=== PATIENT | male | born 1975 | race Hispanic/Latino ===

== ENCOUNTER 2023-10-23 06:15 | Emergency (ER) | payer SELFPAY ==
[2023-10-23] VITALS (25 sets, daily range): BP systolic 136–176; BP diastolic 82–109; PULSE 60–96; RESP 13–25; TEMP 36.4; O2SAT 97–100
--- NOTE | ~2023-10-23 | CT_ITS ---
EXAMINATION: CT abdomen pelvis w con DATE: 10/23/2023 07:47 INDICATION: Bilateral upper quadrant pain, clammy and ill-appearing TECHNIQUE: Computed tomography (CT) of the abdomen and pelvis was performed with 100 mL Omnipaque-350 intravenous contrast. Automated exposure control and iterative reconstruction technique were employe d. The dose-length product was 697.56 mGy-cm. COMPARISON: None FINDINGS: Lung bases are clear. Heart size is normal. No pericardial or pleural effusion. Prominent diffuse hep atic steatosis with mild sparing along the gallbladder fossa. Gallbladder, spleen, pancreas, bilatera l adrenal glands and kidneys are normal. Bladder is normal. Equivocal bowel wall thickening but witho ut significant associated hyperemia to vasa recta and this could be artifact of the largely decompres sed state of the colon. No bowel obstruction. Normal appendix. No free intraperitoneal gas or fluid. No pathologically enlarged abdominal or pelvic lymphadenopathy. Mild thoracic and lumbar spondylosis. IMPRESSION: 1. Equivocal diffuse wall thickening of the colon without surrounding inflammatory changes. Could not exclude a mild colitis however specificity is decreased by the largely decompressed state of the col on with differential also including fatty infiltration related to body habitus. 2. Prominent diffuse and hepatic steatosis. Reviewed, dictated and finalized at location A. IMPRESSION: 1. Equivocal diffuse wall thickening of the colon without surrounding inflammat ory changes. Could not exclude a mild colitis however specificity is decreased by the largely decompressed state of the colon with differential also including fatty infiltration related to body habitus. 2. Prominent diffuse and hepatic steatosis.
--- NOTE | 2023-10-23 06:32 | ECG_ITS ---
Test Date: 2023-10-23 06:32:27 Measurements Intervals [place] Rate: 71 P: 42 [place]: 165 QRS: 68 QRSD: 102 T: 66 QT: 411 QTc: 448 Interpretive Statements SINUS RHYTHM WITH SINUS ARRHYTHMIA EARLY PRECORDIAL R/S TRANSITION NONSPECIFIC T-WAVE ABNORMALITY- ANT/INF LEADS BASELINE ARTIFACT- I, II, III, AVR, AVL ,AVF, V1-V6 BORDERLINE ECG No previous ECG available for comparison Electronically Signed On 10-23-2023 17:18:12 CDT by Adrian Hilton D.O.
[2023-10-23 06:45] LABS: Basophils Absolute Auto 0.1 K/mm3 (0.0-0.1); Basophils Percent Auto 0.6 % (0.2-1.2); Eosinophils Absolute Auto 0.1 K/mm3 (0-0.3); Eosinophils Percent Auto 1.6 % (0-4.4); Hematocrit 44.1 % (42.0-52.0); Hemoglobin 15.8 g/dL (14.0-18.0); Immature Granulocyte Absolute 0.08 K/mm3 (0.00-0.031); Lymphocytes Absolute Auto 3.31 K/mm3 (0.9-3.2); Lymphocytes Percent Auto 41.7 % (18.3-44.2); Mean Corpuscular HGB Conc 35.8 g/dl (32-36); Mean Corpuscular Hemoglobin 31.5 pg (26-34); Monocytes Absolute Auto 0.6 K/mm3 (0.1-0.6); Monocytes Percent Auto 7.6 % (2.6-8.5); Neutrophils Absolute Auto 3.8 K/mm3 (1.3-6.7); Neutrophils Percent Auto 47.5 % (45.5-73.1); Platelet Count Result 210 k/mm3 (150-375); Red Blood Count 5.01 M/mm3 (4.6-6.20); Red Cell Distribution Width 12.4 % (11.5-14.5); White Blood Count 7.9 K/mm3 (4.5-10.0)
[2023-10-23 06:58] LABS: Alanine Aminotransferase 97 U/L (6-50); Albumin Level 4.9 g/dL (3.5-5.1); Alkaline Phosphatase 130 U/L (38-126); Anion Gap 17 mmol/L (4-12); Aspartate Amino Transferase 71 U/L (17-59); Bilirubin,Total 0.5 mg/dL (0.2-1.3); Blood Urea Nitrogen 15 mg/dL (9-20); Calcium 8.6 mg/dL (8.4-10.2); Carbon Dioxide 18 mmol/L (22-30); Chloride 102 mmol/L (98-107); Estimated Glomerular Filt Rate > 60; Glucose 203 mg/dL (65-110); Lipase 128 U/L (23-300); Potassium 2.9 mmol/L (3.4-5.0); Sodium 137 mmol/L (137-145)
--- NOTE | 2023-10-23 07:25 | PC.NURSE ---
Patient rolling and moaning in pain and diaphoretic at this time. Provider aware.
[2023-10-23] MEDS: SODIUM CHLORIDE 0.9% IV 3,000 ML 999 ML IV CONT (07:53)
[2023-10-23] MEDS: ONDANSETRON INJ 4 MG/2 ML VIAL IV PUSH (07:53)
[2023-10-23] MEDS: HYDROmorphone HCL INJ (*CRX) 1 MG/ML SYR 0.5 MG IV PUSH (07:55)
[2023-10-23] MEDS: FAMOTIDINE 20 MG/2 ML VIAL IV PUSH (07:57)
[2023-10-23 08:08] LABS: Appearance Urine Clear (Clear); Bilirubin Urine Negative (Negative); Blood Urine Negative (Negative); Color Urine Yellow (Yellow); Glucose Urine UA 1+ mg/dL (Negative); Ketones Urine Negative (Negative); Leukocyte Esterase Ur Negative LEU/UL (Negative); Nitrate Urine Negative (Negative); Protein Urine Negative (Negative); Specific Grav Ur 1.025 (1.001-1.035); Urobilinogen Urine 0.2 mg/dL (<2.0); pH Urine 7.5 (5.0-9.0)
[2023-10-23 08:11] LABS: Add Urine Microscopic? NO
[2023-10-23] MEDS: POTASSIUM CHLORIDE INJ 40 MEQ in SODIUM CHLORIDE 0.9% IV 500 ML 130 MEQ IVPB (08:15)
[2023-10-23 09:01] LABS: Amphetamine Screen Urine Negative (Negative); Barbiturate Screen Urine Negative (Negative); Benzodiazepines Screen Urine Negative (Negative); Cannabinoid Screen Urine Negative (Negative); Cocaine Screen Urine Negative (Negative); Methadone Screen Urine Negative (Negative); Opiate Screen Urine Negative (Negative); Phencyclidine Screen Urine Negative (Negative)
--- NOTE | 2023-10-23 09:39 | ECG_ITS ---
Test Date: 2023-10-23 09:52:07 Measurements Intervals [place] Rate: 53 P: 42 [place]: 149 QRS: 62 QRSD: 96 T: 59 QT: 459 QTc: 434 Interpretive Statements SINUS BRADYCARDIA MINIMAL Q WAVES- ANTEROLATERAL LEADS BASELINE ARTIFACT- I, III, AVL BORDERLINE ECG Compared to ECG 10/23/2023 06:32:27 HEART RATE HAS DECREASED Electronically Signed On 10-23-2023 17:21:18 CDT by Adrian Hilton D.O.
[2023-10-23 11:01] LABS: Reflex Lactic Acid Yes or No Add Lactic
--- NOTE | 2023-10-23 14:00 | ED.GENADULT ---
HPI - General Adult General Chief complaint: Abdominal Pain Stated complaint: abdominal pain Time Seen by Provider: 10/23/23 06:42 History of Present Illness HPI narrative: This is a 47-year-old male presenting to the with epigastric pain. Pain started just prior to arrival it is a crampy pain across his epigastric area. It is severe in intensity. It is sudden in onset. He has never had pain like this before there are no exacerbating alleviating symptoms. He has no fevers chills nausea vomiting diarrhea chest pain difficulty breathing. No history of GERD or peptic ulcer disease. Related Data Allergies Allergy/AdvReac Type Severity Reaction Status Date / Time No Known Allergies Allergy Verified 10/23/23 06:31 Exam Narrative: APPEARANCE: No apparent distress. Head: atraumatic. EYES: EOMI, NOSE: Atraumatic NECK: Trachea midline RESPIRATORY: No increased rate of breathing CARDIOVASCULAR: RRR, ABDOMINAL: Mild tenderness in the epigastric area, no guarding or rebound MUSCULOSKELETAl: No obvious deformities NEURO: Alert. Moving 4/4 extremities SKIN:: Warm, dry. Normal color PSYCHIATRIC: Normal affect Course Vital Signs Vital signs: Vital Signs Temperature 97.6 F 10/23/23 06:22 Pulse Rate 84 10/23/23 06:22 Respiratory Rate 25 H 10/23/23 06:22 Blood Pressure 166/101 H 10/23/23 06:22 Pulse Oximetry 97 10/23/23 06:22 Oxygen Delivery Room Air 10/23/23 06:22 Temperature 97.6 F 10/23/23 06:22 Pulse Rate 62 10/23/23 10:30 Respiratory Rate 18 10/23/23 10:30 Blood Pressure 176/95 H 10/23/23 09:32 Pulse Oximetry 100 10/23/23 10:30 Oxygen Delivery Room Air 10/23/23 06:22 Medical Decision Making [facility] Narrative Medical decision making narrative: -Course: 47 year old male presenting with epigastric pain. Patient given fluid resuscitation and pain control. CT showed possible colitis without is not correlate with patient's symptoms. Laboratory studies significant for hypokalemia which was repleted. Additionally the patient has a lactic acidosis that resolved with fluid resuscitation. Patient was monitored for 6+ hours in the ED with improvement in symptoms. He is now resting comfortably and is asking to be discharged. Patient has been discharged with return precautions and primary care follow-up. -DDX includes but is not limited to: Gastritis, peptic ulcer disease, gallbladder disease, indigestion, colitis appendicitis -Independent interpretation of studies: CBC normal. Metabolic panel showed hypokalemia and mild metabolic acidosis. Lactic 4.0 which resolved with fluid resuscitation. Mild elevations in AST ALT and alk-phos. UDS and UA negative. Independent EKG interpretation: Rhythm [sinus], Rate [53], [place] -[normal], [place] -[normal], QRS [narrow], QTC [normal], T waves -[negative for concerning inversions], ST Segments - [Negative for concerning elevations] Final interpretations: sinus bridgette -Interventions: 3 L normal saline, 0.5 mg Dilaudid, 20 mg Pepcid, 4 mg Zofran, 40 mEq potassium -Shared decision making / Disposition: Discharge -RX Pepcid Vital Signs Vital Signs: Vital Signs Temperature 97.6 F 10/23/23 06:22 Pulse Rate 84 10/23/23 06:22 Respiratory Rate 25 H 10/23/23 06:22 Blood Pressure 166/101 H 10/23/23 06:22 Pulse Oximetry 97 10/23/23 06:22 Oxygen Delivery Room Air 10/23/23 06:22 Temperature 97.6 F 10/23/23 06:22 Pulse Rate 62 10/23/23 10:30 Respiratory Rate 18 10/23/23 10:30 Blood Pressure 176/95 H 10/23/23 09:32 Pulse Oximetry 100 10/23/23 10:30 Oxygen Delivery Room Air 10/23/23 06:22 Lab Data 10/23/23 06:39 10/23/23 06:39 Labs: Lab Results 10/23/23 10/23/23 10/23/23 Range/Units 06:39 07:57 11:07 WBC 7.9 (4.5-10.0) K/mm3 RBC 5.01 (4.6-6.20) M/mm3 Hgb 15.8 (14.0-18.0) g/dL Hct 44.1 (42.0-52.0) % MCV 88.0 (80-100) fl MCH 31.5 (26-34) pg MCHC 3
== END 2023-10-23 14:34 | disposition home or self-care (01) ==
PROVIDERS: Emergency Medicine; Emergency Provider Emergency Medicine
DX: K30 Functional dyspepsia (principal); E87.6 Hypokalemia; R94.31 Abnormal electrocardiogram [ECG] [EKG]; R00.1 Bradycardia, unspecified
CPT/HCPCS: 36415; 74177; 80053; 80307; 81003; 83605; 83690; 85025; 93005; 96361; 96365; 96366; 96375; 99284; J1170; J2405; J3480; J7030; J7040; Q9967